=== PATIENT | male | born 1990 | race Two or more races ===

== ENCOUNTER 2024-02-15 02:34 | Inpatient (IN) | payer MEDICAID, OTHER ==
[~2024-02-15] VITALS: Ht 180.3 cm; Wt 109.0 kg
[2024-02-15] MEDS: HALOPERIDOL LACTATE 5 MG/ML VIAL IM ONE (03:28)
[2024-02-15] MEDS: LORazepam 2 MG/ML VIAL IM ONE (03:29)
[2024-02-15] MEDS: DiphenhydrAMINE HCL 50 MG/ML VIAL IM ONE (03:29)
[2024-02-15 04:25] LABS: COVID AG,FIA SOURCE NASAL SWAB
[2024-02-15 04:40] LABS: ANION GAP 11 mmol/L (8-16); CALCIUM, TOTAL 8.6 mg/dL (8.8-10.5); CARBON DIOXIDE 27 mmol/L (22-29); CHLORIDE 104 mmol/L (98-107); GLOMERULAR FILTR. RATE CALC > 60 mL/min (>60); GLUCOSE,RANDOM 103 mg/dL (70-110); SODIUM SERUM 142 mmol/L (136-145); UREA NITROGEN, BLOOD 12 mg/dL (7-18)
[2024-02-15 04:53] LABS: BASOPHILS % (AUTO) 0.8 % (0.0-2.0); EOSINOPHILS % (AUTO) 1.1 % (1.0-6.0); HEMATOCRIT 38.7 % (41-53); HEMOGLOBIN 12.4 g/dL (13.5-17.5); LYMPHOCYTES # (AUTO) 1.4 K/uL (1.0-4.8); LYMPHOCYTES % (AUTO) 18.1 % (22.0-44.0); MEAN CORPUSCULAR HEMOGLOBIN 26.2 pg (26.0-34.0); MEAN CORPUSCULAR VOLUME 82 fL (80-100); MONOCYTES # (AUTO) 0.7 K/uL (0.1-1.0); MONOCYTES % (AUTO) 9.7 % (2.0-9.0); NEUTROPHILS # (AUTO) 5.4 K/uL (1.8-7.7); NEUTROPHILS % (AUTO) 70.3 % (40.0-70.0); PLATELET COUNT (AUTO) 315 K/uL (150-450); RED BLOOD CELL COUNT(AUTO) 4.73 MIL/uL (4.50-5.90); RED CELL DISTRIBUTION WIDTH 15.1 % (11.5-14.5); WHITE BLOOD COUNT (AUTO) 7.7 K/uL (4.5-11.0)
[2024-02-15 04:56] LABS: SARS-COV2 (COVID) ANTIGEN,FIA Negative (Negative)
[2024-02-15 05:05] LABS: ALCOHOL, BLOOD (SERUM) < 3 mg/dL (0-10); POTASSIUM 2.8 mmol/L (3.5-5.1)
[2024-02-15] MEDS: POTASSIUM CHLORIDE 20 MEQ ER TABLET PO ONE ×2 (06:10→12:34)
[2024-02-15] MEDS ORDERED: ZOLPIDEM TARTRATE 10 MG TABLET PO PRN (08:30)
[2024-02-15] MEDS ORDERED: HALOPERIDOL 5 MG TABLET PO PRN (08:30)
[2024-02-15] MEDS ORDERED: LORazepam 2 MG TABLET PO PRN (08:30)
[2024-02-15 10:35] VITALS: BP 137/97; PULSE 98; RESP 18; TEMP 98.2; O2SAT 100
[2024-02-15] MEDS ORDERED: CloNIDine HCL 0.1 MG TABLET PO PRN (19:45)
[2024-02-15] MEDS ORDERED: NICOTINE 14 MG/24 HOUR PATCH TD PRN (19:45)
[2024-02-15] MEDS ORDERED: MAG HYDROX/ALUMINUM HYD/SIMETH ES 30 ML SUSPENSION UDCUP PO PRN (19:45)
[2024-02-15] MEDS ORDERED: IBUPROFEN 400 MG TABLET PO PRN (19:45)
[2024-02-15] MEDS ORDERED: MAGNESIUM HYDROXIDE SUSPENSION 30 ML UDCUP PO PRN (19:45)
[2024-02-15] MEDS ORDERED: ACETAMINOPHEN 325 MG TABLET PO PRN (19:45)
[2024-02-15] MEDS ORDERED: LOPERAMIDE HCL 2 MG CAPSULE PO PRN (19:45)
[2024-02-15] MEDS ORDERED: ONDANSETRON HCL 4 MG TABLET PO PRN (19:45)
[2024-02-15] MEDS ORDERED: GuaiFENesin/D-METHORPHAN [SUGAR-FREE] 200-20MG/10 ML SYRUP UDCUP PO PRN (19:45)
[2024-02-15] MEDS ORDERED: ALBUTEROL SULFATE HFA 90 MCG/PUFF 8 GM INHALER IH PRN (19:45)
[2024-02-15] MEDS ORDERED: PETROLATUM,WHITE 28 GM JELLY TP PRN (19:45)
[2024-02-15] MEDS ORDERED: DOCUSATE SODIUM 100 MG CAPSULE PO PRN (19:45)
[2024-02-15 22:31] VITALS: RESP 18
[2024-02-16 12:20] VITALS: BP 110/78; PULSE 102; RESP 17; TEMP 97.3; O2SAT 99
[2024-02-16] MEDS: OLANZapine 5 MG TABLET PO SCH (12:30)
[2024-02-16] MEDS: ESCITALOPRAM OXALATE 10 MG TABLET PO SCH (12:30)
[2024-02-17 08:50] VITALS: BP 114/71; PULSE 96; RESP 18; TEMP 97.9; O2SAT 99
[2024-02-17 09:45] LABS: HEMOGLOBIN A1C 5.7 % (3.8-5.6)
[2024-02-17 10:00] LABS: THYROID STIMULATING HORMONE 0.82 uIU/mL (0.36-3.74)
[2024-02-17] MEDS ORDERED: THIAMINE 100 MG TABLET PO ONE (19:00)
[2024-02-17 20:47] VITALS: RESP 18
[2024-02-18] MEDS: FOLIC ACID 1 MG TABLET PO SCH (08:58)
[2024-02-18] MEDS: MULTIVITAMINS WITH MINERALS, THERAPEUTIC TABLET PO SCH (08:58)
[2024-02-18] MEDS: THIAMINE 100 MG TABLET PO SCH (08:58)
[2024-02-18 09:00] VITALS: BP 125/84; PULSE 87; RESP 18; TEMP 97.5; O2SAT 98
[2024-02-18] MEDS: OLANZapine 5 MG TABLET PO SCH (21:17)
[2024-02-18 21:47] VITALS: BP 127/80; PULSE 89; RESP 18; TEMP 98.1; O2SAT 97
[2024-02-19 10:37] VITALS: BP 114/64; PULSE 68; RESP 18; TEMP 97.6; O2SAT 98
== END 2024-02-19 17:35 | disposition home or self-care (01) | DRG 751 ==
LOC: EMS 02:34 → 3EC 11:25
PROVIDERS: ADMIT Psychiatry & Neurology Child & Adolescent Psychiatry; ATTEND Psychiatry & Neurology Child & Adolescent Psychiatry
PROC: GZHZZZZ Group Psychotherapy (ICD-10-PCS; principal; 2024-02-16)
PROC: GZ52ZZZ Individual Psychotherapy, Cognitive (ICD-10-PCS; 2024-02-16)
PROC: GZ56ZZZ Individual Psychotherapy, Supportive (ICD-10-PCS; 2024-02-16)
DX: F29 Unspecified psychosis not due to a substance or known physiological condition (principal); G93.40 Encephalopathy, unspecified; F22 Delusional disorders; R45.850 Homicidal ideations; E66.01 Morbid (severe) obesity due to excess calories; Z20.822 Contact with and (suspected) exposure to COVID-19; D64.9 Anemia, unspecified; E87.6 Hypokalemia; I10 Essential (primary) hypertension; R79.89 Other specified abnormal findings of blood chemistry; Z68.33 Body mass index [BMI] 33.0-33.9, adult
CPT/HCPCS: 80048; 83036; 84132; 84443; 85025; 99291; G0480; J1200; J1630; J2060